=== PATIENT | female | born 1975 | race Two or more races ===

== ENCOUNTER 2020-10-07 09:52 | Day surgery (SDC) | payer OTHER ==
[~2020-10-07 09:52] MED LIST: LEVOTHYROXINE25 MCG PO
== END 2020-10-07 21:40 | disposition home or self-care (01) ==
LOC: CIR.AMB 09:52
PROVIDERS: ATTEND Obstetrics & Gynecology
DX: N85.01 Benign endometrial hyperplasia (principal); Z20.822 Contact with and (suspected) exposure to COVID-19